=== PATIENT | male | born 1970 | race Caucasian/White ===

== ENCOUNTER 2023-06-12 07:09 | Day surgery (SDC) | payer OTHER, SELFPAY ==
[2023-06-12] VITALS (9 sets, daily range): BP systolic 105–158; BP diastolic 70–99; PULSE 60–71; RESP 14–18; TEMP 36.5–36.7; O2SAT 94–98; BMI 30.4
[2023-06-12] MEDS: Lactated Ringers 1,000 ML 80 ML IV (07:42)
--- NOTE | 2023-06-12 07:50 | W.ANESPRE ---
General Info Date of Service Date Performed: 06/12/23 Height: 6 ft 3 in Weight: 110.5 kg Body Mass Index (BMI): 30.4 Surgical Procedure: Operation Date: 06/12/23 08:40 Proposed Procedure Side Surgeon p Vasectomy Garcia Campbell MD Meds Allergies and Home Medications Allergies Allergy/AdvReac Type Severity Reaction Status Date / Time No Known Allergies Allergy Verified 06/12/23 07:26 Home Medication Medication Instructions Recorded benydha extract 120 mg capsule mg PO 06/09/23 henok kinney 565 mg capsule mg PO 06/09/23 omega 9-wxd-yql-fish oil 1,000 mg 1 cap PO DAILY 06/09/23 (120 mg-180 mg) capsule (Fish Oil) vitamin B complex (B 1 tab PO DAILY 06/09/23 Complex-Vitamin B12 tablet) Current Visit Medications: Current Medications Generic Name Dose Route Start Last Admin Trade Name Freq PRN Reason Stop Dose Admin Ringer's Solution 1,000 mls @ 80 mls/hr 06/12/23 06:00 06/12/23 07:42 IV 06/12/23 23:59 80 mls/hr INFUSION MARILIA Administration IV Miscellaneous Supplies 1 each 06/12/23 06:00 Iv Access IV 06/12/23 23:59 DIRECTED MARILIA Sodium Chloride 0 ml 06/12/23 06:00 Normal Saline Flush 10 Ml Syr IV 06/12/23 23:59 PRN PRN Sodium Chloride 0 ml 06/12/23 06:00 Normal Saline 10 Ml Vial IJ 06/12/23 23:59 DIRECTED PRN Sterile Water 0 ml 06/12/23 06:00 Water,Injection,Sterile 10 Ml Vial IJ 06/12/23 23:59 DIRECTED PRN PFSH Medical History Medical History HTN (hypertension) Surgical History Surgical History Hx of hand surgery (R) pin in hand Hx of tonsillectomy Hx laparoscopic cholecystectomy Tobacco Smoking/Tobacco Use Status: Former Tobacco Use Alcohol Alcohol Intake: never Substance Use Substance use: Never Substance use type: does not use Vital Signs and Lab Results Vital Signs Most Recent Vital Signs in EMR: Most Recent Vital Signs Temp Pulse Resp BP Pulse Ox 36.5 C 66 16 158/99 H 96 06/12/23 07:26 06/12/23 07:26 06/12/23 07:26 06/12/23 07:26 06/12/23 07:26 Lab Results Blood Type / Crossmatch: No Data to Display Complete Blood Count: No Data to Display Complete Metabolic Panel: No Data to Display Liver Function Panel: No Data to Display Coagulation Panel: No Data to Display Cardiac Panel: No Data to Display Arterial Blood Gas: No Data to Display Venous Blood Gas: No Data to Display Pancreas Panel: No Data to Display Thyroid Panel: No Data to Display Infectious Disease: No Data to Display Blood Cultures: No Data to Display Toxicology Panel: No Data to Display Anesthesia Assessment and Plan Anesthesia History Personal History: No History of Anesthesia Complications Family History: No Family History of Anesthesia Complications Exercise Tolerance Exercise Tolerance: Metabolic Equivalents>4 Pertinent Negatives Pertinent Negatives: No Symptoms of GERD, No Major Cardiovascular Symptoms or Complaints, No Major Pulmonary Symptoms or Complaints and No History of CVA/TIA Cardiac & Pulmonary Exam Cardiac Exam: Normal S1/S2 Heart Sounds Pulmonary Exam: Clear Bilateral Breath Sounds Implantable Cardiac Device Does patient have a Pacemaker or an ICD?: No Airway Exam Known Difficult Airway: No Mallampati Class: 2 Mouth Opening: Normal (> 3cm) Thyromental Distance: Greater than 3 cm Neck Range of Motion: Full ROM Neck Circumference: Normal Teeth Condition: Normal Dentition and Removable Dentures/Plates Upper ASA Classification ASA Score: ASA 2 Emergency Case?: No NPO Status NPO Status: NPO Clears >2 hours, Solids >8 hours Anesthesia Plan Resuscitation Status: Full Code Anesthesia Technique: General Anesthesia Airway Planned: Natural Airway Monitors Used: Standard Monitors Preoperative Comments:: Patient reports some anxiety around procedures. Plan is preoperative IV midazolam
--- NOTE | 2023-06-12 08:52 | W.PM.HP.N ---
Date of service: 06/12/23 Time of Service: 08:52 Assessment and Plan Assessment and plan (1) Encounter for vasectomy: Status: Acute Assessment and plan: We will move ahead with the vasectomy for elective sterilization. History of Present Illness History of Present Illness Chief Complaint: Elective sterilization Narrative: This is a 52-year-old gentleman who presents for vasectomy. He and his partner have 5 children and are not interested in additional pregnancies. Review of Systems Narrative: No fevers or chills No vision change or dysphasia No diabetes or thyroid dysfunction No shortness of breath, cough or hemoptysis No chest pain or palpitations No nausea, vomiting, hepatitis, ulcers, jaundice No seizures, strokes or peripheral neuropathy No bleeding disorders or anemia No gout PFSH All Active Problems (Updated 06/12/23 @ 08:53 by Garcia Campbell MD) Encounter for vasectomy (Acute) Medical History (Updated 06/12/23 @ 08:53 by Garcia Campbell MD) HTN (hypertension) Surgical History Hx of hand surgery (R) pin in hand Hx of tonsillectomy Hx laparoscopic cholecystectomy Social History Smoking/Tobacco Use Status: Former Tobacco Use Quit Date: 07/10/17 Smoking risk assessment performed?: Yes Alcohol Intake: never Drug use: Never Substance use type: does not use Housing: house Do you feel safe at home: Yes Do you feel safe in your relationship?: Yes Meds Allergies and Home Medications Allergies Allergy/AdvReac Type Severity Reaction Status Date / Time No Known Allergies Allergy Verified 06/12/23 07:26 Home Medications Medication Instructions Recorded Confirmed Type ashwagandha extract 120 mg capsule mg PO 06/09/23 History hawthorn kinney 565 mg capsule mg PO 06/09/23 History omega 8-ntf-ocp-fish oil 1,000 mg 1 cap PO DAILY 06/09/23 06/12/23 History (120 mg-180 mg) capsule (Fish Oil) vitamin B complex (B 1 tab PO DAILY 06/09/23 06/12/23 History Complex-Vitamin B12 tablet) Exam Const General: cooperative and comfortable Neck Neck: supple Resp Effort & Inspection: normal respiratory effort Auscultation: clear to auscultation bilaterally Cardio Rate: regular rate Rhythm: regular rhythm GI Palpation: soft Neuro General: patient alert, patient awake and patient oriented x3 Results Last Vital Signs Temp 36.5 C 06/12/23 07:26 Pulse 66 06/12/23 07:26 Resp 16 06/12/23 07:26 BP 158/99 H 06/12/23 07:26 Pulse Ox 96 06/12/23 07:26 Time Spent Time spent with Patient: <40 minutes Time was spent: other
[2023-06-12] MEDS: Bupivacaine 0.5% Pres-Free 30 ML VIAL (09:30)
--- NOTE | 2023-06-12 09:39 | W.PM.DSUDISC ---
Date of service: 06/12/23 Time of Service: 09:39 Discharge Plan Disposition Patient Disposition: Home Condition: Stable Discharge Details Reason For Visit: vasectomy Attending Provider: Garcia Campbell Primary Care Provider: None,None Home Meds and New Rx's Prescriptions: No Action vitamin B complex [B Complex-Vitamin B12] Tablet 1 tab PO DAILY omega 8-nkr-prs-fish oil [Fish Oil] 1,000 mg (120 mg-180 mg) capsule 1 cap PO DAILY ashwagandha extract 120 mg capsule PO hawthorn kinney 565 mg capsule PO Discharge Instructions Additional Instructions: wear supportive shorts for next 48 hours use ice packs to the scrotum (a bag of frozen peas works well) on 20 minutes off 20 minutes while awake for next 48 hours no heavy exercise for 1 week no ejaculation for 1 week use tylenol and anti-inflammatory medications for any pain bring semen sample to office in about 12 weeks to make sure all sperm have been flushed out Activity:: see additional instructions Shower/Bathe:: 24 hours Diet:: As Tolerated Discharge Orders Discharge Orders: Discharge Order (Routine); Ordered 06/12/23 Ordered By: Garcia Campbell DS: Diagnosis Discharge Diagnosis (1) Encounter for vasectomy: Status: Acute
--- NOTE | 2023-06-12 09:44 | W.PM.OP ---
Date of service: 06/12/23 Time of Service: 09:44 Operative Note Operative Note DATE OF PROCEDURE: 06/12/23 PRE-OP DIAGNOSIS: Elective sterilization PROCEDURE: vasectomy SURGEON: Garcia Campbell ANESTHESIA TYPE: Local By Surgeon and General:No Airway Refer to Anesthesia Record ESTIMATED BLOOD LOSS: 10 PATHOLOGY: none sent Patient was transported to: same day Patient's condition: stable Implants: none Indications: This is a 52-year-old gentleman who comes in for vasectomy. He and his partner have 5 children and are not interested in additional pregnancies. Findings: Normal anatomy Procedure Description: He was placed in the supine position. His genitalia was prepped and draped. We began on the left side and isolated the vas deferens up against the scrotal skin. The skin was infiltrated with quarter percent Marcaine. The skin was then opened using a scalpel free technique. The vas deferens was grasped within a ring forceps. The vas was dissected free from its surrounding tissue. A 2 cm section of vas was then excised. Each cut end of the vas was cauterized using a Bovie. The more proximal end of the vas was buried back beneath the adventitia using a simple interrupted 4-0 chromic suture. Once hemostasis had been obtained, the skin was closed with Dermabond. The same procedure was then performed on the patient's right side. Neither the vas deferens was sent to pathology. This is the current recommendation of the [place] [employer]. The patient tolerated this procedure well. He was cautioned that he is not considered sterile until he is able to provide a semen sample that shows the absence of sperm. We recommend the sample be provided in about 12 weeks.
--- NOTE | 2023-06-12 10:22 | W.ANESPOSTOP ---
Postoperative Evaluation Date, Time and Location Date Performed: 06/12/23 Time Performed: 10:23 Patient Location: PACU Vital Signs Most Recent Imported Vital Signs: Most Recent Vital Signs Temp Pulse Resp BP Pulse Ox 36.7 C 71 18 133/81 95 06/12/23 10:20 06/12/23 10:20 06/12/23 10:20 06/12/23 10:20 06/12/23 10:20 Pain Score Most Recent Pain Score: Most Recent Pain Score Pain Level 0 06/12/23 10:20 Assessment Mental Status: Awake (Alert & Oriented to Patient Baseline) Airway and Respiratory Function: Patent airway with normal (patient baseline) respiratory exam Cardiovascular Function: Hemodynamically Stable Hydration Status: Adequately Hydrated Nausea & Vomiting: No Nausea or Vomiting Pain: Pt. Denies Any Pain Peripheral Nerve Block: Patient did not receive a nerve block
== END 2023-06-12 07:10 | disposition home or self-care (01) ==
PROVIDERS: Visit Provider Urology
PROC: (CPT 55250; principal; 2023-06-12 08:30)
DX: Z30.2 Encounter for sterilization (principal)
CPT/HCPCS: 55250; J0131; J1885; J2001; J2250; J2704

== ENCOUNTER 2024-01-05 12:23 | Outpatient (CLI) | payer OTHER, SELFPAY ==
[2024-01-05 12:07] LABS: Hemoglobin A1C 5.5 % (<5.7)
[2024-01-05 12:09] LABS: CREATININE 1.1 mg/dL (0.70-1.30); Calculated LDL 161 mg/dL (<100); Cholesterol 232 mg/dL (<200); Estimated GFR 80.27 (mL/min/1.73m2); HDL Cholesterol 52 mg/dL (40-60); Potassium 3.9 mmol/L (3.5-5.1); Triglyceride 98 mg/dL (<150)
== END 2024-01-05 12:24 | disposition home or self-care (01) ==
LOC: LBO 12:24
PROVIDERS: PCP Nurse Practitioner Family; Visit Provider Nurse Practitioner Family
DX: Z13.220 Encounter for screening for lipoid disorders (principal); I10 Essential (primary) hypertension; Z13.1 Encounter for screening for diabetes mellitus
CPT/HCPCS: 36415; 80061; 82565; 83036; 84132

== ENCOUNTER 2024-04-12 06:55 | Day surgery (SDC) | payer OTHER, SELFPAY ==
--- NOTE | 2024-04-11 14:14 | W.PM.DSUDISC ---
Date of service: 04/12/24 Time of Service: 08:34 Discharge Plan Disposition Patient Disposition: Home Condition: Good Discharge Details Reason For Visit: screening colonoscopy Attending Provider: Wilfredo Melton Primary Care Provider: Keith Hazel Home Meds and New Rx's Prescriptions: Continued lisinopril 10 mg tablet 10 mg PO DAILY Qty: 90 4RF acetaminophen 325 mg capsule 325 mg PO ONCE PRN Discontinued bisacodyl [Dulcolax (bisacodyl)] 5 mg tablet,delayed release (DR/EC) 5 mg PO ONCE Qty: 4 0RF Rx Instructions: Take per colonoscopy instructions provided by ordering providers office polyethylene glycol 3350 17 gram/dose powder 17 g PO ONCE Qty: 238 0RF Rx Instructions: Take per colonoscopy instructions provided by ordering providers office Discharge Instructions Instructions: Colon polyps, Diverticulosis Additional Instructions: Juan, we are able to complete your colonoscopy today without any difficulty. Your prep was excellent negative everything just fine. I did find and remove 3 polyps in total today. All of these were quite small. All will be sent off for testing, and once we know the nature of these polyps, the office will be in touch with recommendations for the timing of your next colonoscopy. Incidentally, you also have some diverticulosis. Diverticula are weak spots in the muscular part of the colon wall. They typically accumulate as we get older. I attached a little bit of information here about basic approaches to diverticulosis as well as colorectal polyps. If you have any questions at all, please do not hesitate to call or ask at any point. 1. If tolerated, consume a soft, low fiber diet for 1-2 days. 2[address] Do not drive, drink alcohol, operate machinery, make critical decisions, or do activities that require coordination or balance for 24 hours. 3. Because air was put into your colon during the procedure, expelling air from your rectum (passing gas or farting) is normal. 4. You may not have a bowel movement for 1-3 days because of the colonoscopy prep. This is normal. 5. Go directly to the emergency room if you notice any of the following: Develop chills (warm to touch), or if you have a thermometer and your temperature is above 101 Difficulty breathing or difficultly swallowing Persistent vomiting Severe abdominal pain, other than gas cramps Severe chest pain Black, tarry stools Any bleeding ? exceeding one tablespoon 6. Call your physician if the site where your intravenous was started becomes red, swollen, painful, and warm to touch. 7. Your physician has reviewed your pre-procedure medications. Please continue to take those medications as previously ordered. You will be given specific information/education regarding any changes to your medications before leaving. Activity:: Activity as Tolerated Diet:: As Tolerated Discharge Orders Discharge Orders: Discharge Order (Routine); Ordered 04/11/24 Ordered By: Wilfredo Melton DS: Diagnosis Discharge Diagnosis (1) Encounter for screening colonoscopy: Status: Acute Asessment and Plan: Follow-up on polypectomy results
--- NOTE | 2024-04-11 14:21 | W.COLOREPORT ---
Date of service: 04/12/24 Time of Service: 08:36 Colonoscopy Report Date of procedure: 04/12/24 Pre-op diagnosis general: screening colonoscopy Post-op diagnosis procedure note: other (Diverticulosis, colon polyps) Procedure: colonoscopy with polypectomy Surgeon: Wilfredo Melton Anesthesia Type: General:No Airway Estimated blood loss (mL): 5 Pathology: other (0.25 cm flat ascending colon polyp, 0.25 cm flat polyps at 35 cm x 2) Complications: None Disposition: same day Indications: Jaun is a 53 year old man who needs a screening colonsocopy Prep: Miralax/Dulcolax Procedure Start Time: 08:11 Procedure End Time: 08:29 Retraction Time: 14 Findings: Sigmoid diverticulosis, 0.25 cm flat ascending colon polyp, 0.25 cm flat polyps at 35 cm x 2 Procedure Description: After the induction of anesthesia, and with the patient in left lateral decubitus position, I began by performing an external anorectal exam.? Perineum and skin were normal, as was the anal verge.? There are some external hemorrhoids.? Next, I performed a digital rectal exam.? I did not appreciate any abnormal findings.? Next, I advanced a colonoscope into the rectal vault.? I performed retroflexion.? This appeared normal.? Using insufflation, I then advanced the colonoscope beyond the rectal folds and into the sigmoid colon before advancing towards the cecum.? The quality of the prep was outstanding.? There is sigmoid diverticulosis. the scope was noted to be in the cecum by identification of the ileocecal valve and appendiceal orifice.? I then began withdrawing the colonoscope using repeated irrigation as necessary for full evaluation of the colonic mucosa. Just a few centimeters away from the ileocecal valve was a 0.25 cm flat polyp. This was removed with cold forceps. There was minimal bleeding. I found 2 other polyps around 35 cm from the anus. These were just a few centimeters apart from 1 another. These were both flat, and I removed both of these with cold forceps as well. There was minimal bleeding from the sites. Once the scope was withdrawn to the level of the rectum, great care was taken to examine portions of the rectal folds.? Finally, the scope was withdrawn and the patient was brought to the same-day surgery recovery unit as the anesthetic wore off. ?The findings and instructions were shared with the patient prior to discharge. Moodus Bowel Prep Moodus Bowel Prep Right Colon: 3 Left Colon: 3 Transverse Colon: 3 Total Score: 9
[2024-04-12 07:17] VITALS: BP 145/100; PULSE 76; RESP 18; TEMP 36.4; O2SAT 97
[2024-04-12] MEDS: Lactated Ringers 1,000 ML 80 ML IV (07:34)
--- NOTE | 2024-04-12 07:55 | W.ANESPRE ---
General Info Date of Service Date Performed: 04/12/24 Height: 6 ft 3 in Weight: 111.13 kg Body Mass Index (BMI): 30.6 Surgical Procedure: Operation Date: 04/12/24 08:20 Proposed Procedure Side Surgeon charles Melton MD Meds Allergies and Home Medications Allergies Allergy/AdvReac Type Severity Reaction Status Date / Time No Known Allergies Allergy Verified 04/12/24 07:12 Home Medication ?Medication ?Instructions ?Recorded lisinopril 10 mg tablet 10 mg PO DAILY #90 tabs 01/22/24 acetaminophen 325 mg capsule 325 mg PO ONCE PRN 04/12/24 Current Visit Medications: Current Medications Generic Name Dose Route Start Last Admin Trade Name Freq PRN Reason Stop Dose Admin Ringer's Solution 1,000 mls @ 80 mls/hr 04/12/24 06:00 04/12/24 07:34 IV 05/11/24 23:59 80 mls/hr INFUSION MARILIA Administration IV Miscellaneous Supplies 1 each 04/12/24 06:00 Iv Access IV 05/11/24 23:59 DIRECTED MARILIA Ondansetron HCl 4 mg 04/11/24 14:23 Ondansetron 4 Mg/2 Ml Vial IVP 05/11/24 14:22 Q4H PRN PRN Nausea / Vomiting Sodium Chloride 0 ml 04/12/24 06:00 Normal Saline Flush 10 Ml Syr IV 05/11/24 23:59 PRN PRN Sodium Chloride 0 ml 04/12/24 06:00 Normal Saline 10 Ml Vial IJ 05/11/24 23:59 DIRECTED PRN Sterile Water 0 ml 04/12/24 06:00 Water,Injection,Sterile 10 Ml Vial IJ 05/11/24 23:59 DIRECTED PRN PFSH Active Problems Active Problems: Problem Status Onset Code Encounter for screening colonoscopy Acute Z12.11 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 Acute B36.9, H62.43 Fatigue Acute R53.83 HTN (hypertension) Chronic I10 Medical History Medical History Encounter for vasectomy Surgical History Surgical History Hx of hand surgery (R) pin in hand Hx of tonsillectomy Hx laparoscopic cholecystectomy Tobacco Smoking/Tobacco Use Status: Former Tobacco Use Alcohol Alcohol Intake: current Alcohol intake frequency: a few times a week Substance Use Substance use: Never Substance use type: does not use Vital Signs and Lab Results Vital Signs Most Recent Vital Signs in EMR: Most Recent Vital Signs Temp Pulse Resp BP Pulse Ox 36.4 C L 76 18 145/100 H 97 04/12/24 07:17 04/12/24 07:17 04/12/24 07:17 04/12/24 07:17 04/12/24 07:17 Lab Results Blood Type / Crossmatch: No Data to Display Complete Blood Count: No Data to Display Complete Metabolic Panel: No Data to Display Liver Function Panel: No Data to Display Coagulation Panel: No Data to Display Cardiac Panel: No Data to Display Arterial Blood Gas: No Data to Display Venous Blood Gas: No Data to Display Pancreas Panel: No Data to Display Thyroid Panel: No Data to Display Infectious Disease: No Data to Display Blood Cultures: No Data to Display Toxicology Panel: No Data to Display Anesthesia Assessment and Plan Anesthesia History Personal History: No History of Anesthesia Complications Family History: No Family History of Anesthesia Complications Exercise Tolerance Exercise Tolerance: Metabolic Equivalents>4 Pertinent Negatives Pertinent Negatives: No Symptoms of GERD Cardiac & Pulmonary Exam Cardiac Exam: Normal S1/S2 Heart Sounds Pulmonary Exam: Clear Bilateral Breath Sounds Implantable Cardiac Device Does patient have a Pacemaker or an ICD?: No Airway Exam Known Difficult Airway: No Mallampati Class: 2 Mouth Opening: Normal (> 3cm) Thyromental Distance: Greater than 3 cm Neck Range of Motion: Full ROM Neck Circumference: Normal Teeth Condition: Normal Dentition and Removable Dentures/Plates Upper ASA Classification ASA Score: ASA 2 Emergency Case?: No NPO Status NPO Status: NPO Clears >2 hours, Solids >8 hours Anesthesia Plan Resuscitation Status: Full Code Anesthesia Technique: General Anesthesia Airway Planned: Natural Airway Monitors Used: Standard Monitors
[2024-04-12 07:57] VITALS: BMI 30.6
--- NOTE | 2024-04-12 08:18 | BOWEL_PTH ---
PATIENT: Juan Chopra LOC: [facility] U#:[id number] AGE/SX: 53/M ROOM: RE04/12/[address]: Wilfredo Melton MD : 1970 BED: DIS: 04/12/2024 SPEC #: [id number] RECD: 04/12/24 12:12 STATUS: MARSHALL REQ #: [id number] RANDY: 04/12/24 08:[address]: Wilfredo Melton DEPT: Surgical Specimen RECD BY: Fang Chua ENTERED: 04/12/24 12:13 SP TYPE: Bowel OTHR DR: Keith Hazel, ALYSON Tissues: 1 - BIOPSY BOWEL 2 - BIOPSY BOWEL Procedures: GROSS AND MICRO LEVEL 4 Comments: [id number]
[2024-04-12 08:33] VITALS: BP 115/87; PULSE 73; RESP 16; TEMP 36.6; O2SAT 95
[2024-04-12 09:03] VITALS: BP 115/87; PULSE 71; RESP 16; TEMP 36.6; O2SAT 95
--- NOTE | 2024-04-12 09:34 | W.ANESPOSTOP ---
Postoperative Evaluation Date, Time and Location Date Performed: 04/12/24 Time Performed: 09:34 Patient Location: Day Surgery Unit Vital Signs Most Recent Imported Vital Signs: Most Recent Vital Signs Temp Pulse Resp BP Pulse Ox 36.6 C 71 16 115/87 95 04/12/24 09:03 04/12/24 09:03 04/12/24 09:03 04/12/24 09:03 04/12/24 09:03 Pain Score Most Recent Pain Score: Most Recent Pain Score Pain Level 0 04/12/24 09:03 Assessment Mental Status: Awake (Alert & Oriented to Patient Baseline) Airway and Respiratory Function: Patent airway with normal (patient baseline) respiratory exam Cardiovascular Function: Hemodynamically Stable Hydration Status: Adequately Hydrated Nausea & Vomiting: No Nausea or Vomiting Pain: Pt. Denies Any Pain Peripheral Nerve Block: Patient did not receive a nerve block
== END 2024-04-12 09:30 | disposition home or self-care (01) ==
LOC: SUR 06:55
PROVIDERS: PCP Nurse Practitioner Family; Visit Provider Surgery
PROC: 0DJD8ZZ Inspection of Lower Intestinal Tract, Via Natural or Artificial Opening Endoscopic (ICD-10-PCS; CPT 45378; principal; 2024-04-12 08:15)
DX: Z12.11 Encounter for screening for malignant neoplasm of colon (principal); D12.2 Benign neoplasm of ascending colon; K57.30 Diverticulosis of large intestine without perforation or abscess without bleeding; D12.5 Benign neoplasm of sigmoid colon
CPT/HCPCS: 45380; 88305; J2704